=== PATIENT | male | born 1960 | race Caucasian/White ===

== ENCOUNTER 2019-04-12 14:09 | Emergency (ER) | payer OTHER ==
[~2019-04-12] VITALS: Ht 172.7 cm; Wt 90.9 kg
[2019-04-12 14:11] VITALS: BP 169/121
[2019-04-12 14:47] LABS: BASOPHILS % (AUTO) 0.7 % (0-1); EOSINOPHILS # (AUTO) 0.1 X10'3 (0-0.9); EOSINOPHILS % (AUTO) 1.4 % (0-6); HEMATOCRIT 41.5 % (42.0-52.0); HEMOGLOBIN 13.7 g/dl (14.0-17.9); LYMPHOCYTES # (AUTO) 1.4 X10'3 (1.1-4.8); LYMPHOCYTES % (AUTO) 26.4 % (21-51); MEAN CORPUSCULAR HEMOGLOBIN 23.8 PG (27.0-31.0); MEAN CORPUSCULAR HGB CONC 32.9 g/dL (33.0-36.5); MEAN CORPUSCULAR VOLUME 72.2 FL (78-98); MONOCYTES # (AUTO) 0.4 X10'3 (0-0.9); MONOCYTES % (AUTO) 7.2 % (2-12); NEUTROPHILS # (AUTO) 3.3 X10'3 (1.8-7.7); NEUTROPHILS % (AUTO) 64.3 % (42-75); PLATELET COUNT 284 X10'3 (140-440); RED BLOOD COUNT 5.75 X10'6 (4.70-6.10); RED CELL DISTRIBUTION WIDTH 15.6 % (11.5-14.5); WHITE BLOOD COUNT 5.2 X10'3 (4.5-11.0)
[2019-04-12 15:01] LABS: PARTIAL THROMBOPLASTIN TIME 27 SECONDS (22-32)
[2019-04-12 15:02] LABS: ALANINE AMINOTRANSFERASE 100 U/L (12-78); ALBUMIN 4.5 G/DL (3.4-5.0); ALBUMIN/GLOBULIN RATIO 1.2 (1.1-1.5); ALKALINE PHOSPHATASE 84 IU/L (46-116); ANION GAP 11 (8-16); ASPARTATE AMINO TRANSFERASE 44 U/L (10-37); BILIRUBIN,TOTAL 0.4 MG/DL (0.1-1.0); BLOOD UREA NITROGEN 16 MG/DL (7-18); CALCIUM 9.1 MG/DL (8.5-10.1); CHLORIDE 107 MMOL/L (99-107); CREATININE 0.94 MG/DL (0.60-1.10); GLUCOSE 115 MG/DL (70-104); POTASSIUM 3.8 MMOL/L (3.5-5.1); SODIUM 141 MMOL/L (135-145); TOTAL CARBON DIOXIDE 22.6 MMOL/L (24-32); TOTAL PROTEIN 8.3 G/DL (6.4-8.2); eGFR 83 ML/MIN
[2019-04-12] MEDS ORDERED: CYCL-1 PO (15:09)
[2019-04-12] MEDS ORDERED: ketorolac trometh inj. 60 MG/2 ML VIAL IM ONE (15:10)
== END 2019-04-12 15:54 | disposition home or self-care (01) ==
LOC: ER 14:09
DX: M54.12 Radiculopathy, cervical region (principal); M25.512 Pain in left shoulder; Z79.899 Other long term (current) drug therapy
CPT/HCPCS: 36415; 71045; 80053; 84484; 85025; 85610; 85730; 93005; 96372; 99284; J1885

== ENCOUNTER 2019-04-18 20:06 | Emergency (ER) | payer MEDICAID, OTHER ==
[~2019-04-18] VITALS: Ht 172.7 cm; Wt 90.9 kg
[~2019-04-18 20:06] MED LIST: CYCL-1 PO
[2019-04-18 20:12] VITALS: BP 175/111
[2019-04-18] MEDS ORDERED: triamcinolone acetonide 40mg/ml inj IM ONE (20:50)
[2019-04-18] MEDS ORDERED: BUPIVAcaine/PF 2.5mg/ml (0.25%) 10ml vial IJ ONE ×2 (21:00)
[2019-04-18] MEDS ORDERED: BUPIVAcaine/PF 2.5 mg/ml (0.25%) 30ml vial IJ ONE (21:00)
[2019-04-18] MEDS ORDERED: CYCL-1 PO (21:26)
== END 2019-04-18 22:01 | disposition home or self-care (01) ==
LOC: ER 20:06
DX: M25.512 Pain in left shoulder (principal); Z79.899 Other long term (current) drug therapy
CPT/HCPCS: 20552; 99284; J3301; J3490

== ENCOUNTER 2019-05-19 00:51 | Emergency (ER) | payer MEDICAID, OTHER ==
[~2019-05-19] VITALS: Ht 172.7 cm; Wt 90.0 kg
[2019-05-19 00:54] VITALS: BP 167/79
[2019-05-19] MEDS ORDERED: CYCL-1 PO (01:14)
[2019-05-19] MEDS ORDERED: BUPIVAcaine/PF 2.5 mg/ml (0.25%) 30ml vial IJ ONE (01:15)
[2019-05-19] MEDS ORDERED: triamcinolone acetonide 40mg/ml inj IM ONE (01:15)
== END 2019-05-19 01:50 | disposition home or self-care (01) ==
LOC: ER 00:51
DX: M25.512 Pain in left shoulder (principal); Z79.899 Other long term (current) drug therapy
CPT/HCPCS: 20552; 99284; J3301; J3490

== ENCOUNTER 2019-07-10 00:53 | Emergency (ER) | payer MEDICAID, OTHER ==
[~2019-07-10] VITALS: Ht 172.7 cm; Wt 91.0 kg
[2019-07-10 00:57] VITALS: BP 175/109
[2019-07-10] MEDS ORDERED: BUPIVAcaine/PF 2.5 mg/ml (0.25%) 30ml vial IJ ONE (01:10)
[2019-07-10] MEDS ORDERED: triamcinolone acetonide 40mg/ml inj IM ONE (01:10)
[2019-07-10] MEDS ORDERED: BUPIVAcaine/PF 2.5mg/ml (0.25%) 10ml vial IJ ONE (01:50)
[2019-07-10] MEDS ORDERED: CYCL-1 PO ×2 (02:05→02:24)
== END 2019-07-10 02:28 | disposition home or self-care (01) ==
LOC: ER 00:53
DX: M62.830 Muscle spasm of back (principal); M54.6 Pain in thoracic spine; M25.512 Pain in left shoulder; Z79.899 Other long term (current) drug therapy
CPT/HCPCS: 20552; 99284; J3301; J3490